=== PATIENT | female | born 1995 | race Caucasian/White ===

== ENCOUNTER 2024-02-03 21:35 | Emergency (ER) | payer BC ==
[~2024-02-03] VITALS: Ht 167.6 cm; Wt 147.4 kg
[2024-02-03 21:45] VITALS: BP 148/82; PULSE 78; RESP 18; TEMP 97.6; O2SAT 99
[2024-02-04 01:42] LABS: APPEARANCE,URINE CLEAR (CLEAR); BILIRUBIN,URINE 1+ (NEGATIVE); BLOOD, URINE 3+ (NEGATIVE); COLOR,URINE YELLOW (YELLOW); LEUKOCYTE ESTERASE ,URINE TRACE (NEGATIVE); NITRITE, URINE NEGATIVE (NEGATIVE); PH,URINE 5.5 (5.0-9.0); PROTEIN,URINE 1+ (NEGATIVE); UGLUCOSE NEGATIVE (NEGATIVE); UROBILINOGEN,URINE 0.2 EU/dL (0.2 - 1)
[2024-02-04 01:43] LABS: ICTOTEST POSITIVE (NEGATIVE)
[2024-02-04 01:45] LABS: BACTERIA,URINE >30 (MANY) /HPF (None Seen); MUCUS,URINE 1+ /LPF (None Seen); SQUAMOUS EPITHELIAL CELL,UR 4-10 (MOD) /LPF (0-3 (FEW))
[2024-02-04] MEDS ORDERED: cefTRIAXone 1,000 MG VIAL ONE (01:50)
[2024-02-04] MEDS ORDERED: LIDOCAINE MPF 1% 5 ML ONE (01:50)
[2024-02-04] MEDS: cefTRIAXone 1,000 MG in LIDOCAINE MPF 1% 2.1 ML IM ONE (01:58)
[2024-02-04] MEDS: KETOROLAC 60 MG/2 ML VIAL IM ONE (01:58)
[2024-02-04 02:00] VITALS: BP 127/89; PULSE 59; RESP 20; TEMP 97.6; O2SAT 100
[2024-02-04] MEDS ORDERED: CIPR500T4 PO (02:00)
[2024-02-04] MEDS ORDERED: NAPR-337 PO (02:00)
== END 2024-02-04 02:00 | disposition home or self-care (01) ==
LOC: MED 21:35
DX: N39.0 Urinary tract infection, site not specified (principal)
CPT/HCPCS: 81001; 81025; 87086; 96372; 99284; J0696; J1885; J2001